=== PATIENT | female | born 1950 | race Caucasian/White ===

== ENCOUNTER 2018-07-15 12:47 | Outpatient (CLI) | payer MEDICARE, MEDICAID, SELFPAY ==
[2018-07-15 13:08] LABS: Bilirubin Negative (Negative); Blood Trace-lysed (Negative); Clarity Clear; Glucose Negative (Negative); Ketones Negative (Negative); Leukocyte Esterase Small (Negative); Nitrite Negative (Negative); Urobilinogen 0.2 EU/dL (Up TO 0.2)
[2018-07-15 13:17] LABS: Bacteria Few HPF (Negative); C & S Indicated? C&S Done As Ordered; Casts Negative LPF (Negative); Crystals Negative HPF (Negative); Epithelial Cells Few HPF (Negative); Mucus Negative (Negative); Other Cells Few Renal (Negative); RBC Negative (0-2); WBC >50 HPF (0-5)
== END 2018-07-15 13:07 ==
PROVIDERS: PCP Family Medicine; Visit Provider Family Medicine
DX: R30.0 Dysuria (principal)
CPT/HCPCS: 81003; 81015; 87086

== ENCOUNTER 2018-07-15 13:14 | Outpatient (CLI) | payer MEDICARE, MEDICAID, SELFPAY ==
--- NOTE | 2018-07-15 13:05 | DIABASSESS_ITS ---
DESCRIPTION/ASSESSMENT: Tamia Gomez presents for diabetes management focused on nutrition. She has had a recent increase in A1c from 7.4 14 months ago to 8.3 this month. She takes Metformin and has just been prescribed Januvia and is reluctant to take it. She has just started probiotics and fish oil supplements. Tamia monitors her blood sugars every few weeks. She will not ozzy her fingertips, and does not have an arm lancet device and has difficulty obtaining sufficient blood. Tamia eats cereal, however she did not eat anything this morning because she wasn't sure what to eat. She eats tomato or chicken noodle soup for lunch; last night she had hot dog and baked potato with naik. She does not eat sliced deli meat. She occasionally has diet jello with banana in it for a sweet. She dislikes eggs. She reports a weight loss of 9 pounds over the past months. She was walking most days, but has gotten busy with caretaking for friends and relatives. She has had family loss recently which is causing her to feel stressed. INTERVENTION: Reviewed diabetes food guide focused on unrefined carbohydrates and emphasizing vegetables and protein. Brainstormed breakfast foods and homemade souops. She is given diabetes magazines with recipes to try. Discussed food access and she will participate in [facility] monthly. Attempted to obtain blood for glucometer reading however she was unable to obtain using different lancet devices. Will work to get her device that she can use on the arm. Discussed physical activity at home in the winter. She is given an exercise band to help with upper body. Discussed walking in place for cardiovascular activity. Tamia is determined to decrease her A1c without added medication, however I did encourage her to follow provider recommendation and reviewed side effects of Januvia briefly with her. ACTION PLAN: Use recipes from diabetes magazines; try non-grain breakfasts ; make homemade soup to increase vegetables and protein Use exercise band and walk in place daily for physical activity Come to [facility] of each month at [facility] Individual MNT 3__ units billed TIME IN: 9117 OUT: 1416 No DM group education series being offered at this time.
== END 2018-07-15 13:34 ==
PROVIDERS: PCP Family Medicine; Visit Provider Dietitian, Registered
DX: E11.9 Type 2 diabetes mellitus without complications (principal); Z79.84 Long term (current) use of oral hypoglycemic drugs; Z71.3 Dietary counseling and surveillance
CPT/HCPCS: 97802; 81003; 81015; 87086

== ENCOUNTER 2023-12-04 01:56 | Emergency (ER) | payer MEDICARE, SELFPAY ==
[2023-12-04] VITALS (39 sets, daily range): BP systolic 78–169; BP diastolic 40–101; PULSE 63–86; RESP 13–22; TEMP 37.6; O2SAT 97–98
--- NOTE | 2023-12-04 01:45 | RT.EKG_ITS ---
APPROVED REPORT Exam: Resting ECG Reason for Exam: chesst pain Patient Location: E HR:74 bpm ECG Measurements Heart Rate 74 AXIS [place] 204 P 42 QRSd 75 QRS 32 QT 390 T 37 QTc 434 Conclusion Sinus rhythm...normal P axis, V-rate 60- 99 Physician: no stemi
--- NOTE | 2023-12-04 02:00 | DI.CT_ITS ---
Exam(s) CT CHEST/ABD/PEL WO EXAM: CT CHEST/ABD/PEL WO CLINICAL HISTORY: left flank/chest pain, eval for stone. TECHNIQUE: Imaging Protocol: Axial computed tomography images with coronal and sagittal reformatted images were created and reviewed CONTRAST MATERIAL: Intravenous: none Oral: None COMPARISON: No exams were available for comparison FINDINGS: CHEST: LUNGS: No infiltrates nor pleural effusions. No significant lung nodules.. MEDIASTINUM: No obvious hilar nor mediastinal adenopathy. Visualized thyroid unremarkable. CARDIAC: Heart size is normal. There is no pericardial effusion.Caliber of the thoracic aorta is wit hin normal limits. OSSEOUS: No significant osseous lesions.Disc space narrowing T12-L1 and L5-S1. No compression fractu res.. ABDOMEN: There is no ascites. LIVER: The liver is diffusely hypodense implying fatty parenchymal change-steatosis. There no discre te focal hepatic lesions identified and there are no dilated intrahepatic ducts. GALLBLADDER/BILIARY: Gallbladder is not seen and may be surgically absent. CBD is not dilated. PANCREAS: No evidence of obvious pancreatic mass nor dilatation of the pancreatic duct. SPLEEN: Spleen is not enlarged. No obvious intrasplenic lesions. ADRENALS: No focal findings. KIDNEYS: No cysts nor masses seen in the kidneys and no radiopaque calculi. There is slight prominen ce and haziness of the upper collecting system of both sides in the renal infundibuli and renal pelvi s bilaterally. There are no radiopaque calculi at these levels. The ureters are not dilated. ABDOMINAL AORTA: Abdominal aorta is not enlarged. LYMPH NODES: There is no retroperitoneal nor para-aortic adenopathy. ABDOMINAL WALL/GI: No evidence of significant anterior abdominal wall nor inguinal hernia. No evidence of bowel obstruction. PELVIS: LYMPH NODES: There is no intrapelvic nor inguinal adenopathy. GI: No evidence of appendicitis.There are diverticuli in the left side of the colon as well as the si gmoid without evidence of acute diverticulitis. URINARY BLADDER: Urinary bladder wall is uniformly thickened and exhibits mild perivesicular strandin g. There is also a single air bubble in the anterior aspect of the bladder. REPRODUCTIVE: Age-appropriate. OSSEOUS: No fractures. No significant osseous lesions. IMPRESSION: 1. No significant intrathoracic findings. 2. There are no radiopaque calculi in the kidneys but there is prominence and haziness of the upper c ollecting systems both sides at the level the renal pelves and infundibulum 3. There is also diffuse bladder wall thickening and mild perivesicular stranding. Probable cystitis . The above findings in the bladder and kidneys are most probably related to infectious etiology. Kwaku elation with clinical findings recommended. RADIATION DOSE DELIVERED: Total DLP DATA REPOSITORY: All CT scans at this facility are submitted to the National Radiology Data Registry (NRDR) Dose Index Registry (DIR) with the [employer] (ACR). RADIATION OPTIMIZATION: All CT scans at this facility use at least one of these dose optimization te chniques: automated exposure control; mA and/or kV adjustment per patient size (includes targeted exa ms where dose is matched to clinical indication); or iterative reconstruction.
--- NOTE | 2023-12-04 02:04 | ED.GENADUL_ITS ---
Discharge Plan Disposition Patient Disposition: Home Condition: Good Discharge Details Clinical Impression: Acute UTI Primary Care Provider: Mihaela Booker ED Provider: Sadiq Sawyer Home Meds and New Rx's Prescriptions: New cephalexin 500 mg capsule 500 mg PO QID 7 Days Qty: 28 0RF No Action multivitamin [Daily Multi-Vitamin] 1 EACH tablet 1 tab PO DAILY aspirin [Aspir-81] 81 MG tablet,delayed release (DR/EC) 81 mg PO DAILY metformin 1,000 MG tablet 1,000 mg PO BID propranolol 20 MG tablet 40 mg PO TID rosuvastatin [Crestor] 10 MG tablet 10 mg PO DAILY topiramate 25 MG tablet 75 mg PO HS Discharge Instructions Instructions: Urinary Tract Infection in Women (ED) Additional Instructions: At this time you have evidence of a urinary tract infection. It is mild but I believe it is a component of your symptoms today. Please take the Keflex as directed. It is been sent to your pharmacy on file at [facility]. There may also be a component of a mild muscle strain. Please take Tylenol as needed for pain. If you notice any worsening of your symptoms, or any new symptoms such as vomiting, diarrhea, fever, chills, shortness of breath, chest pain, numbness, weakness, or fainting , please return immediately to the emergency department for reevaluation. Please follow up with your primary care provider as soon as possible for reassessment and reevaluation. As always, it was a pleasure participating in your medical care today. Referrals: Mihaela Booker [Primary Care Provider] - [facility] General Date/Time Provider Initiated Documentation: 12/04/23 02:59 . HPI Narrative: This is a pleasant 73-year-old female with a past medical history of type 2 diabetes, high cholesterol, tremors, cholecystectomy, 3 C-sections, who presents today for evaluation of left-sided flank pain. Patient states that pain occurred about an hour and a half ago while she was sleeping. She states that she woke up and felt some sharp discomfort in her left flank. Symptoms resolved on their own after about an hour. She had no shortness of breath. No pleuritic chest pain, no left upper chest pain. She denies any recent exertional dyspnea over the last few days. No other complaints at this time. No cough. No fever. No chills. No urinary complaints. Related Data Home Medications Medication Instructions Recorded Confirmed aspirin 81 mg tablet,delayed 81 mg PO DAILY 01/30/14 12/04/23 release (Aspir-) metformin 1,000 mg tablet 1,000 mg PO BID 01/30/14 12/04/23 multivitamin (Daily Multi-Vitamin 1 tab PO DAILY 01/30/14 12/04/23 tablet) propranolol 20 mg tablet 40 mg PO TID 01/30/14 12/04/23 rosuvastatin 10 mg tablet (Crestor) 10 mg PO DAILY 01/30/14 12/04/23 topiramate 25 mg tablet 75 mg PO HS 02/27/17 12/04/23 cephalexin 500 mg capsule 500 mg PO QID 7 days #28 caps 12/04/23 Previous Rx's Medication Instructions Recorded cephalexin 500 mg capsule 500 mg PO QID 7 days #28 caps 12/04/23 Allergies Allergy/AdvReac Type Severity Reaction Status Date / Time No Known Allergies Allergy Unverified 12/04/23 02:29 Review of Systems All systems reviewed & are unremarkable except as noted in HPI and below Exam Narrative Exam Narrative: 1.Const: Well-nourished, Well-developed, appearing stated age 2.Eyes: PERRL, no conjunctival injection, and symmetrical lids. 3.ENT: Atraumatic external nose and ears. Moist MM. Neck: Symmetric, trachea midline, No thyromegaly. 4.CVS: +S1/S2, No murmurs or gallops. Peripheral pulses 2+ and equal in all extremities. Brisk capillary refill in all extremities. 5.RESP: Unlabored respiratory effort. Clear to auscultation bilaterally. No wheezes rales or rhonchi 6.GI: Soft, Nontender/Nondistended, No hepatosplenomegaly. No guarding or rebound. 7.MSK: Normocephalic/Atraumatic, Extremities w/o deformity or ttp No cyanosis or clubbing, Normal movement of all extremities 8.Skin: Warm, Dry. No rashes or lesions. 9.Neuro: shelf stocker II-XII grossly intact. Sensation grossly intact, no focal neurologic deficits. 10.Psych: (AAO) x3. Appropriate mood and affect Medical Decision Making This is a pleasant 73-year-old female with a past medical history of type 2 diabetes, high cholesterol, tremors, cholecystectomy, 3 C-sections, who presents today for evaluation of left-sided flank pain. Patient states that pain occurred about an hour and a half ago while she was sleeping. She states that she woke up and felt some sharp discomfort in her left flank. Symptoms resolved on their own after about an hour. She had no shortness of breath. No pleuritic chest pain, no left upper chest pain. She denies any recent exertional dyspnea over the last few days. No other complaints at this time. No cough. No fever. No chills. No urinary complaints. Exam demonstrates well-appearing female, no signs of shingles, no significant CVA or abdominal tenderness. No chest wall tenderness. Differential includes kidney stone, intercostal muscle spasm, less likely cardiac etiology or PE. Will evaluate for concerning etiologies, get a CAT scan, monitor closely and reassess. EKG is benign. 6 AM Patient feels much better after Lidoderm patch and Tylenol. Laboratory workup has returned, no white count bandemia or left shift. Renal function stable. Lipase minimally elevated. Urinalysis does show trace leuk esterase, negative nitrates, and 3-5 WBCs. Concern for potential urinary component. CT scan of the chest is negative for acute process. CT scan of the abdomen shows evidence of mild hydronephrosis on the left, which may represent recently passed stone. CT scan also shows evidence of mild thickening of the urinary bladder with adjacent fat stranding, concerning for cystitis which correlates well with a urinary tract infection and the patient's left-sided flank symptomatology. Will treat with 2 g of ceftriaxone here and a prescription for Keflex for home. Patient otherwise feels well. Vital signs stable. Patient appropriate for home discharge. Repeat troponin is normal, symptoms appear notably inconsistent with ACS. Patient will be discharged. I discussed with her that if she has any questions she can call me for the next 6 nights while I am on shift. Discussed red flags for which to return. I have extensively reviewed the treatment plan and discharge instructions with the patient. I have addressed all patient concerns at this time. The patient was made aware of what symptoms to monitor for that would warrant a return to the emergency department. Discussed the plan with the patient, they demonstrate verbal understanding and agreement with our assessment and plan at this time. The documentation in this chart was dictated using [employer] dictation software. Please excuse any dictation errors. FINDINGS: Limitations: No contrast was administered, limiting evaluation for some pathologies. Lungs: No focal consolidation seen. Pleural spaces: No pleural effusion. Heart: No pericardial effusion. Lymph nodes: Nonspecific mediastinal lymph nodes. Vasculature: Arterial calcifications. Bones/joints: No acute pertinent abnormality appreciated. Soft tissues: No acute pertinent abnormality appreciated. IMPRESSION: 1. No acute findings to explain reported symptoms, within the limitations of a noncontrast examination. 2. Additional studies dictated separately FINDINGS: Limitations: No contrast was administered, limiting evaluation for some pathologies. Liver: Heterogeneous hepatic steatosis. Gallbladder and bile ducts: Gallbladder not visualized. Pancreas: No CT evidence for acute pancreatitis. Spleen: No splenomegaly. Adrenal glands: Adrenal thickening. Kidneys and ureters: Mild left hydronephrosis. Left perinephric stranding. No renal or ureteral calculi seen. No bladder calculi seen. Stomach and bowel: No intestinal obstruction is evident. Retained fecal material throughout the colon. Correlate clinically for history of constipation. Colonic diverticula. Appendix: No evidence of appendicitis. Intraperitoneal space: No free air. Vasculature: No abdominal aortic aneurysm. Lymph nodes: Nonspecific mesenteric and retroperitoneal lymph nodes. Nonspecific mesenteric and retroperitoneal lymph nodes. Urinary bladder: Small amount of air in the urinary bladder attributed to recent catheterization. Please correlate clinically. Mild thickening of the urinary bladder with stranding in the adjacent fat. Reproductive: No acute findings. Bones/joints: No pertinent acute abnormality seen. Soft tissues: Fat containing umbilical hernia. IMPRESSION: 1. Mild left hydronephrosis. No calculi seen at this time. Findings may reflect recent stone passage or obstruction by a non radiopaque lesion. Please correlate clinically. 2. Mild bladder wall thickening with stranding in the adjacent fat suspicious for cystitis. Cannot exclude neoplasm. Follow-up as clinically warranted. 3. Additional findings as above. 4. Additional studies dictated separately. Thank you for allowing us to participate in the care of your patient. Dictated and Authenticated by: Phyllis Allen MD 12/04/2023 3:41 AM Eastern Time ([place] & C Quality:SDOH Health Related Social Needs: No Data to Display PFSH All Active Problems (Updated 12/04/23 @ 05:59 by Sadiq Sawyer DO) Acute UTI (Acute) Social History Smoking/Tobacco Use Status: Former Tobacco Use Smoking risk assessment performed?: Yes Drug use: Never Do you feel safe in your relationship?: Yes
[2023-12-04 02:13] LABS: Abs Immature Grans 0.03 10^3/uL (0.0-0.06); Absolute Basophil Count 0.04 10^3/uL (0.0-0.2); Absolute Eosinophil Count 0.15 10^3/uL (0.0-0.7); Absolute Lymphocyte Count 2.22 10^3/uL (1.2-3.4); Absolute Monocyte Count 0.47 10^3/uL (0.1-0.8); Absolute Neutrophil Count 4.85 10^3/uL (1.2-6.7); Basophils % 0.5; Eosinophils % 1.9; HCT 39.2 % (36.0-46.0); HGB 12.7 g/dL (11.2-15.7); Immature Grans % 0.4; Lymphocytes % 28.6; MCH 28.4 pg (27.0-33.0); MCHC 32.4 % (32.0-36.0); MCV 88 fL (80-95); MPV 10.3 fL (8.0-11.0); Monocytes % 6.1; Neutrophils % 62.5; Platelet Count 209 10^3/uL (130-400); RBC 4.47 10^6/uL (3.93-5.22); RDW-SD 41.3 fL; WBC 7.76 10^3/uL (4.4-10.8)
[2023-12-04 02:28] LABS: PTT Activated 23.2 sec (23.6-32.8); Prothrombin Time 10.2 sec (9.1-11.1)
[2023-12-04 02:32] LABS: ALT 14 U/L (14-59); AST 14 U/L (15-37); Albumin 3.7 g/dL (3.4-5.0); Alkaline Phosphatase 80 U/L (46-116); Anion Gap 10.9 mmol/L (3-11); BUN 15 mg/dL (7-18); Bilirubin, Total 0.3 mg/dL (0.2-1.0); CO2 25.1 mmol/L (21.0-32.0); CREATININE 0.9 mg/dL (0.55-1.02); Calcium 9.1 mg/dL (8.5-10.1); Chloride 108 mmol/L (98-107); Estimated GFR 67.92 (mL/min/1.73m2); Glucose 144 mg/dL (74-106); Lipase 85 U/L (16-77); Potassium 3.7 mmol/L (3.5-5.1); Sodium 144 mmol/L (136-145); Total Protein 7.4 g/dL (6.4-8.2); Troponin I < 50 ng/L (< or =60)
[2023-12-04 02:37] LABS: Bilirubin Negative (Negative); Blood Negative (Negative); Clarity Clear (Clear); Glucose Negative (Negative); Ketones Negative (Negative); Leukocyte Esterase Trace (Negative); Nitrite Negative (Negative); Specific Gravity 1.015 (1.005-1.025); Urobilinogen 0.2 mg/dL (Up to 0.2)
[2023-12-04 02:46] LABS: Bacteria Few HPF (Negative); C & S Indicated? Yes; Crystals Negative HPF (Negative); Epithelial Cells Rare HPF (Negative); Mucus Negative (Negative); RBC 0-2 HPF (0-2)
[2023-12-04] MEDS: Lidocaine 5% Patch 1 PATCH TP (03:10)
[2023-12-04] MEDS: Acetaminophen 500 MG TAB 1000 MG PO (03:10)
--- NOTE | 2023-12-04 03:42 | DI.VRAD_ITS ---
PROCEDURE INFORMATION: Exam: CT Chest Without Contrast; Diagnostic Exam date and time: 12/04/2023 2:39 AM Age: 73 years old Clinical indication: Chest wall pain and left-sided; Patient HX: L flank and chest pain, eval for stone TECHNIQUE: Imaging protocol: Diagnostic computed tomography of the chest without contrast. Radiation optimization: All CT scans at this facility use at least one of these dose optimization techniques: automated exposure control; mA and/or kV adjustment per patient size (includes targeted exams where dose is matched to clinical indication); or iterative reconstruction. COMPARISON: No relevant prior studies available. FINDINGS: Limitations: No contrast was administered, limiting evaluation for some pathologies. Lungs: No focal consolidation seen. Pleural spaces: No pleural effusion. Heart: No pericardial effusion. Lymph nodes: Nonspecific mediastinal lymph nodes. Vasculature: Arterial calcifications. Bones/joints: No acute pertinent abnormality appreciated. Soft tissues: No acute pertinent abnormality appreciated. IMPRESSION: 1. No acute findings to explain reported symptoms, within the limitations of a noncontrast examination. 2. Additional studies dictated separately. PROCEDURE INFORMATION: Exam: CT Abdomen And Pelvis Without Contrast Exam date and time: 12/04/2023 2:39 AM Age: 73 years old Clinical indication: Chest wall pain and left-sided; Patient HX: L flank and chest pain, eval for stone TECHNIQUE: Imaging protocol: Computed tomography of the abdomen and pelvis without contrast. Radiation optimization: All CT scans at this facility use at least one of these dose optimization techniques: automated exposure control; mA and/or kV adjustment per patient size (includes targeted exams where dose is matched to clinical indication); or iterative reconstruction. COMPARISON: No relevant prior studies available. FINDINGS: Limitations: No contrast was administered, limiting evaluation for some pathologies. Liver: Heterogeneous hepatic steatosis. Gallbladder and bile ducts: Gallbladder not visualized. Pancreas: No CT evidence for acute pancreatitis. Spleen: No splenomegaly. Adrenal glands: Adrenal thickening. Kidneys and ureters: Mild left hydronephrosis. Left perinephric stranding. No renal or ureteral calculi seen. No bladder calculi seen. Stomach and bowel: No intestinal obstruction is evident. Retained fecal material throughout the colon. Correlate clinically for history of constipation. Colonic diverticula. Appendix: No evidence of appendicitis. Intraperitoneal space: No free air. Vasculature: No abdominal aortic aneurysm. Lymph nodes: Nonspecific mesenteric and retroperitoneal lymph nodes. Nonspecific mesenteric and retroperitoneal lymph nodes. Urinary bladder: Small amount of air in the urinary bladder attributed to recent catheterization. Please correlate clinically. Mild thickening of the urinary bladder with stranding in the adjacent fat. Reproductive: No acute findings. Bones/joints: No pertinent acute abnormality seen. Soft tissues: Fat containing umbilical hernia. IMPRESSION: 1. Mild left hydronephrosis. No calculi seen at this time. Findings may reflect recent stone passage or obstruction by a non radiopaque lesion. Please correlate clinically. 2. Mild bladder wall thickening with stranding in the adjacent fat suspicious for cystitis. Cannot exclude neoplasm. Follow-up as clinically warranted. 3. Additional findings as above. 4. Additional studies dictated separately. Dictated and Authenticated by: Phyllis Allen MD. Ordering:KENRICK Babcock MD
[2023-12-04] MEDS: cefTRIAXone 2 GM/50 ML BAG IVPB (04:10)
[2023-12-04 05:44] LABS: Troponin I < 50 ng/L (< or =60)
== END 2023-12-04 06:21 | disposition home or self-care (01) ==
LOC: ER 06:43
PROVIDERS: Emergency Provider Student in an Organized Health Care Education/Training Program; PCP Family Medicine
DX: R10.32 Left lower quadrant pain (principal); N39.0 Urinary tract infection, site not specified; E11.9 Type 2 diabetes mellitus without complications
CPT/HCPCS: 36415; 71250; 80053; 83690; 93005; 96365; 99284; 74176; 81003; 81015; 84484; 85025; 85610; 85730; 87086; 93010; 99283; J0696

== ENCOUNTER → 2025-03-25 13:43 | Outpatient (BNVA) | payer MEDICARE, SELFPAY | PROVIDERS: PCP Family Medicine; Referring Provider Internal Medicine; Visit Provider Psychiatry & Neurology Neurology | DX: G25.0 Essential tremor (principal); N20.0 Calculus of kidney; E11.59 Type 2 diabetes mellitus with other circulatory complications; I10 Essential (primary) hypertension | CPT/HCPCS: 99215 ==